=== PATIENT | female | born 1995 | race American Indian/Alaskan Native ===

== ENCOUNTER 2021-01-13 19:40 | Emergency (ER) | payer OTHER ==
[2021-01-13 20:04] VITALS: BP 142/97
--- NOTE | 2021-01-13 20:57 | XRay Report ---
RIGHT ANKLE 3 VIEW(S) INDICATION / CLINICAL INFORMATION: pain and swelling COMPARISON: None available. FINDINGS: BONES / JOINT(S): No acute fracture or subluxation. No significant arthritis. The ankle mortise is in tact. SOFT TISSUES: Mild superficial soft tissue swelling and edema anterior to the ankle. ADDITIONAL FINDINGS: None. Signer Name: Zan Morin MD Signed: 01/13/2021 8:53 PM Workstation Name: [id number]
--- NOTE | 2021-01-13 20:57 | XRay Report ---
RIGHT KNEE 3 VIEW(S) INDICATION / CLINICAL INFORMATION: pain and swelling COMPARISON: None available. FINDINGS: BONES / JOINT(S): No acute fracture or subluxation. No significant arthritis. SOFT TISSUES: Small suprapatellar joint effusion. ADDITIONAL FINDINGS: None. Signer Name: Zan Morin MD Signed: 01/13/2021 8:52 PM Workstation Name: [id number]
== END 2021-01-14 00:43 ==
LOC: ED 19:40
DX: M79.604 Pain in right leg (principal); M79.89 Other specified soft tissue disorders; Z53.21 Procedure and treatment not carried out due to patient leaving prior to being seen by health care provider